=== PATIENT | male | born 1965 | race Caucasian/White ===

== ENCOUNTER → 2021-12-23 13:02 | Outpatient (BNVA) | payer OTHER, SELFPAY | PROVIDERS: Family Provider Nurse Practitioner Family; PCP Nurse Practitioner Family; Visit Provider Family Medicine | DX: Z20.822 Contact with and (suspected) exposure to COVID-19 (principal) | CPT/HCPCS: 87635 ==

== ENCOUNTER 2021-12-30 07:52 | Inpatient (IN) | payer OTHER, SELFPAY ==
[2021-12-30] VITALS (30 sets, daily range): BP systolic 81–120; BP diastolic 52–95; PULSE 77–172; RESP 0–30; TEMP 36–36.1; O2SAT 91–100; BMI 25.7
--- NOTE | 2021-12-30 07:56 | XR_ITS ---
WS: [id number] Portable AP semiupright chest, 12/30/2021 Clinical Data: COVID + Comparison: PA and lateral chest, 01/10/2019. Findings: No nodules, masses or effusions are seen. The heart is normal. The pulmonary vascularity is not increased. No pneumonia or pneumothorax is seen. The aortic arch and descending thoracic aorta s how mild tortuosity. Monitor leads are on the chest wall. XR/XR chest 1V portable [id number] Impression: Atherosclerosis.
--- NOTE | 2021-12-30 08:03 | ED_ITS ---
HPI - COVID General: Chief Complaint: Shortness of Breath/Dyspnea Stated Complaint: SOB Time Seen by Provider: 12/30/21 07:57 History of Present Illness: Patient presents via ambulance with shortness of breath and not feeling good. Patient states there is been feeling worsens on prednisone and his shortness of breath started last night. Fingerstick in ambulance was 500 for his glucose. Patient said his sugars normally run 200 range but since he started prednisone he felt worse. Does have a dry cough has had a loss of taste and smell, body aches and nausea. Patient said he is urinating more and is very thirsty. Patient was seen in [facility] [place] last night but refused transport to hospital. MD complaint: known COVID positive Prior covid testing: yes, results known Prior testing date: 12/23/21 COVID 19 common symptoms: positive chills, non-productive cough, dyspnea, fatigue, body aches, loss of sense of smell and/or taste and nausea; negative headache(s) or throat pain COVID 19 other sytmptoms: negative chest pain COVID Results: SARS-CoV-2 (PCR) Detected (NOT DETECT) A 12/23/21 13:02 12/23/21 Coronavirus Type 229E (PCR) Not detected (NOT DETECT) 12/23/21 13:02 12/23/21 Review of Systems Const: Reports: chills, body aches and fatigue Eyes: Denies: eye discomfort ENMT: Denies: throat pain Card: Denies: chest pain Resp: Reports: dyspnea and non-productive cough GI: Reports: nausea : Reports: urinary frequency Skin/Breast: Denies: rash Neuro: Denies: headache(s) Psych: Denies: depression or suicidal ideation PFS ED PFSH: Medical History (Updated 12/30/21 @ 10:32 by David Pena MD) Diabetes 1.5, managed as type 2 HTN (hypertension) Family History Brother Diabetes Grandfather Diabetes PATERNAL Myocardial infarction Grandmother Diabetes MATERNAL CAD (coronary artery disease) MATERNAL S/P CABG (coronary artery bypass graft) Social History (Updated 12/30/21 @ 10:26 by David Pena MD) Smoking and tobacco status: never smoked Alcohol intake: never Physical Exam Const: COMMON NORMALS: no acute distress, patient oriented x3 and alert HENMT: COMMON NORMALS: normocephalic and external ears normal HEAD & SCALP: normocephalic EXTERNAL EAR: Yes external ears normal Eye: COMMON NORMALS: EOMs intact bilaterally Neck/C-Spine: COMMON NORMALS: no JVD Resp: COMMON NORMALS: normal respiratory effort and No use of accessory muscles Cardio: COMMON NORMALS: no JVD RATE: tachycardic Extremity: COMMON NORMALS: normal to inspection and full ROM NARRATIVE EXTREMITY EXAM: Feet are cool to touch Neuro: COMMON NORMALS: patient oriented x3 SENSORIUM/ORIENTATION: Yes alert Psych: COMMON NORMALS: mental status grossly normal Skin: COMMON NORMALS: no rashes or lesions noted GENERAL SKIN EXAM: no rashes or lesions noted Course Vital Signs: Vital signs: Vital Signs Temperature 97.0 F L 12/30/21 07:55 Pulse Rate 131 H 12/30/21 12:00 Respiratory Rate 18 12/30/21 12:00 Blood Pressure 96/71 12/30/21 12:00 Pulse Oximetry 99 12/30/21 12:00 [facility] - COVID Medical Decision Making Report given to Dr. Jimenez Lab Data : 12/30/21 08:38 12/30/21 12:20 Radiology Impressions Chest X-Ray 12/30/21 07:56 Impression: Atherosclerosis. Chest CTA 12/30/21 08:14 IMPRESSION: 1. Bilateral pulmonary emboli. Bilateral segmental/subsegmental lower lobe pulmonary emboli. 2. No RIGHT heart strain. 3. No adenopathy or pneumonia. Notified Phuc Jimenez DO at 12/30/2021 8:50 AM. Laboratory Results WBC 15.8 10^3/uL (4.0-10.0) H 12/30/21 08:38 RBC 6.77 10^6/uL (4.1-5.3) H 12/30/21 08:38 Hgb 19.8 g/dL (11.7-16.6) H 12/30/21 08:38 Hct 60.7 % (42.0-52.0) H 12/30/21 08:38 MCV 89.7 fl (80-94) 12/30/21 08:38 MCH 29.2 pg (28.0-34.0) 12/30/21 08:38 MCHC 32.6 g/dL (30.0-36.0) 12/30/21 08:38 RDW 12.3 % (12.1-15.1) 12/30/21 08:38 Plt Count 420 10^3/cmm (130-400) H 12/30/21 08:38 MPV 10.3 fL (7.4-10.4) 12/30/21 08:38 Neut % (Auto) 88.7 % 12/30/21 08:38 Lymph % (Auto) 4.3 % 12/30/21 08:38 Mccreary % (Auto) 5.8 % 12/30/21 08:38 Eos % (Auto) 0.1 % 12/30/21 08:38 Baso % (Auto) 0.5 % 12/30/21 08:38 Neut # (Auto) 13.97 10^3/uL (1.8-7.7) H 12/30/21 08:38 Lymph # (Auto) 0.7 10^3/uL (0.8-4.8) L 12/30/21 08:38 Mccreary # (Auto) 0.9 10^3/uL (0.2-0.9) 12/30/21 08:38 Eos # (Auto) 0.0 10^3/uL (0.0-0.8) 12/30/21 08:38 Baso # (Auto) 0.1 10^3/uL (0.0-0.1) 12/30/21 08:38 Nucleated RBC % (auto) 0 % 12/30/21 08:38 Nucleated RBCs # 0.0 /100WBC 12/30/21 08:38 PT 14.90 SECONDS (12.1-14.9) 12/30/21 09:37 INR 1.13 (0.8-1.2) 12/30/21 09:37 APTT 23.0 SECONDS (23.9-36.7) L 12/30/21 09:37 Specimen Type Arterial 12/30/21 08:14 Sample Site Radial, left 12/30/21 08:14 ABG pH 7.04 (7.35-7.45) L* 12/30/21 08:14 ABG pCO2 7.7 mmHg (35-45) L* 03/10/22 08:14 ABG pO2 176.0 mmHg (80.0-100.0) H 12/30/21 08:14 ABG HCO3 2.1 mmol/L (22-26) L 12/30/21 08:14 ABG O2 Saturation 99.2 12/30/21 08:14 ABG Base Excess -26.0 mmol/L (-2.0-2.0) L 12/30/21 08:14 Erick Test Pos 12/30/21 08:14 A-a O2 Gradient 8.6 mmHg (5-10) 12/30/21 08:14 Hematocrit 58.6 % (42-52) H 12/30/21 08:14 Hgb O2 Saturation 97.5 % (95-100) 12/30/21 08:14 Carboxyhemoglobin 0.8 %THgb (0.4-20.1) 12/30/21 08:14 Methemoglobin 0.9 % (0.4-1.5) 12/30/21 08:14 Total Hemoglobin 19.1 g/dL (14-18) H 12/30/21 08:14 Sodium 128.0 mmol/L (131-143) L 12/30/21 08:14 Potassium 5.9 mmol/L (3.5-5.0) H 12/30/21 08:14 Glucose 603.0 mg/dL (70-115) H 12/30/21 08:14 Ionized Calcium 1.3 mmol/L (1.1-1.4) 12/30/21 08:14 O2 Delivery Device Nc 12/30/21 08:14 O2 Liters/Min 4.0 % 12/30/21 08:14 FiO2 36.0 % 12/30/21 08:14 Lead Business Analyst ID Ed 12/30/21 08:14 Sodium 126 mmol/L (136-145) L 12/30/21 08:38 Potassium 6.1 mmol/L (3.5-5.1) H 12/30/21 08:38 Chloride 84 mmol/L (98-107) L 12/30/21 08:38 Carbon Dioxide 4 mmol/L (22-29) L* 12/30/21 08:38 Anion Gap 44.1 (5-19) H 12/30/21 08:38 BUN 65 mg/dL (6-20) H 12/30/21 08:38 Creatinine 1.6 mg/dL (0.7-1.2) H 12/30/21 08:38 GFR Calculation 45.3 mL/min (90-130) L 12/30/21 08:38 Glucose 600 mg/dL (65-115) H* 12/30/21 08:38 Calculated Osmolality 309 mOsm/kg (285-295) H 12/30/21 08:38 Calcium 9.8 mg/dL (8.5-10.5) 12/30/21 08:38 Phosphorus 6.6 mg/dL (2.5-4.5) H 12/30/21 08:38 Magnesium 3.0 mg/dL (1.7-2.3) H 12/30/21 08:38 Total Bilirubin 0.3 mg/dL (0.15-1.2) 12/30/21 08:38 AST 10 U/L (0-40) 12/30/21 08:38 ALT 16 U/L (0-41) 12/30/21 08:38 Alkaline Phosphatase 84 IU/L (40-130) 12/30/21 08:38 Creatine Kinase 88 U/L (39-308) 12/30/21 08:38 Troponin T Baseline 22 ng/L (0-15) H 12/30/21 08:38 Total Protein 8.5 g/dL (6.6-8.7) 12/30/21 08:38 Albumin 4.9 g/dL (3.5-5.2) 12/30/21 08:38 Globulin 3.6 g/dL (1.3-4.6) 12/30/21 08:38 Procalcitonin 0.11 ng/mL (0-0.5) 12/30/21 08:38 TSH 0.29 uIU/mL (0.27-4.20) 12/30/21 08:38 Serum Ketones Positive (Negative) H 12/30/21 08:38 SARS-CoV-2 (PCR) Detected (NOT DETECT) A 12/23/21 13:02 12/23/21 Coronavirus Type 229E (PCR) Not detected (NOT DETECT) 12/23/21 13:02 12/23/21 Discharge Plan Discharge Admit Provider: David Pena Condition: Stable Coding Level of Care Code ED Aluminum Molder for Chg Fwd Exam Comprehensive
--- NOTE | 2021-12-30 08:12 | ECG_ITS ---
[facility] Test Date: 2021-12-30 Pat Name: Aiden Jj Department: Room: ICU04 Gender: Male Marketing Underwriter: : 1965 Requested By: Phuc Hernandez Order Number: [id number] Mandeep MD: Sandi Davalos M.D. Measurements Intervals [place] Rate: 156 P: [place]: QRS: 66 QRSD: 95 T: -83 QT: 262 QTc: 422 Interpretive Statements ATRIAL FIBRILLATION WITH RAPID VENTRICULAR RESPONSE ST DEVIATION AND MODERATE T-WAVE ABNORMALITY, CONSIDER INFERIOR ISCHEMIA [-0.1+ mV T-WAVE IN II/aVF] CRITICAL TEST RESULT No previous ECG available for comparison Electronically Signed On 12-31-2021 6:00:26 DIRECTOR ACCOUNT MANAGEMENT by Sandi Davalos M.D. [id number]
--- NOTE | 2021-12-30 08:14 | CT_ITS ---
WS: [id number] CT CHEST ANGIOGRAPHY WITH REFORMATS HISTORY: dyspnea, covid tachycardia TECHNIQUE: Contiguous axial images are obtained through the chest during arterial injection of intrav enous contrast. Images are reconstructed to evaluate the pulmonary arteries. MIP imaging also reviewe d. All CT scans at [facility] use at least one of these dose optimization techniques: automat ed exposure control; mA and/or kV adjustment per patient size (includes targeted exams where dose is matched to clinical indication); or iterative reconstruction. CONTRAST: Omnipaque 350; 95 mL IV. DLP: 587.86 mGy.cm COMPARISON: 12/11/2013 Adequate opacification of the pulmonary arteries. There are small subsegmental filling defects within the lower lobe pulmonary arteries consistent with pulmonary emboli. Pulmonary artery size is equal t o the aorta. Normal size aorta. Heart is normal size with no RIGHT heart strain. Mild motion artifact obscuring fine detail of the lungs. No pneumonia, mass or nodule identified. No mediastinal or hilar adenopathy. Small hiatal hernia. No adrenal mass visualized. The entire adrenal glands are not included. The visualized upper abdomina l structures are negative. No osteoblastic or osteolytic bone disease. CT/CT angio chest PE protcl [id number] IMPRESSION: 1. Bilateral pulmonary emboli. Bilateral segmental/subsegmental lower lobe pul monary emboli. 2. No RIGHT heart strain. 3. No adenopathy or pneumonia. Notified Phuc Jimenez DO at 12/30/2021 8:50 AM.
[2021-12-30 08:27] LABS: Arterial Blood Gas Hematocrit 58.6 % (42-52); Blood Gas Allen Test Pos; Blood Gas Sample Type Arterial; Carboxyhemoglobin 0.8 %THgb (0.4-20.1); HCO3 ABG 2.1 mmol/L (22-26); HGB O2 Sat 97.5 % (95-100); Ionized Calcium Level - ABG 1.3 mmol/L (1.1-1.4); Methemoglobin 0.9 % (0.4-1.5); Oxygen Saturation ABG 99.2; Potassium Level - ABG 5.9 mmol/L (3.5-5.0); Total Hemoglobin 19.1 g/dL (14-18)
[2021-12-30 08:28] LABS: Alveolar-Arterial Oxygen Gradi 8.6 mmHg (5-10); Blood Gas Operator Identificat ED; Blood Gas Sample Site Radial, left; Oxygen Device NC
[2021-12-30 08:29] LABS: ABG PCO2 7.7 mmHg (35-45); ABG PH Result 7.04 (7.35-7.45)
[2021-12-30] MEDS: iohexol 350 mg/mL 100 mL Btl IV (08:41)
[2021-12-30] MEDS: insulin regular-human 100 units/1 mL 10 UNIT IVP (08:49)
[2021-12-30 08:56] LABS: Basophils # 0.1 10^3/uL (0.0-0.1); Basophils % 0.5 %; Eosinophils % 0.1 %; Hematocrit 60.7 % (42.0-52.0); Hemoglobin 19.8 g/dL (11.7-16.6); Lymphocytes # 0.7 10^3/uL (0.8-4.8); Lymphocytes % 4.3 %; Mean Corpuscular HGB Conc 32.6 g/dL (30.0-36.0); Mean Corpuscular Hemoglobin 29.2 pg (28.0-34.0); Mean Corpuscular Volume 89.7 fl (80-94); Mean Platelet Volume 10.3 fL (7.4-10.4); Monocytes # 0.9 10^3/uL (0.2-0.9); Monocytes % 5.8 %; Neutrophils # 13.97 10^3/uL (1.8-7.7); Neutrophils % 88.7 %; Nucleated Red Blood Cells % 0 %; Platelet Count 420 10^3/cmm (130-400); Red Blood Count 6.77 10^6/uL (4.1-5.3); Red Cell Distribution Width 12.3 % (12.1-15.1); White Blood Count 15.8 10^3/uL (4.0-10.0)
[2021-12-30] MEDS: lactated ringers 1,000 ML 999 ML IV (09:02)
[2021-12-30 09:25] LABS: Alanine Aminotransferase 16 U/L (0-41); Albumin Level 4.9 g/dL (3.5-5.2); Alkaline Phosphatase 84 IU/L (40-130); Aspartate Amino Transferase 10 U/L (0-40); Blood Urea Nitrogen 65 mg/dL (6-20); Calcium 9.8 mg/dL (8.5-10.5); Chloride 84 mmol/L (98-107); Globulin 3.6 g/dL (1.3-4.6); Glomerular Filtration Rate 45.3 mL/min (90-130); Osmolality Calculated 309 mOsm/kg (285-295); Phosphorus 6.6 mg/dL (2.5-4.5); Sodium 126 mmol/L (136-145); Total Bilirubin 0.3 mg/dL (0.15-1.2); Total Protein 8.5 g/dL (6.6-8.7)
[2021-12-30 09:26] LABS: Troponin(5th) Baseline 22 ng/L (0-15)
[2021-12-30 09:29] LABS: Ketone (Acetest) Serum Positive (Negative)
[2021-12-30 09:31] LABS: Procalcitonin 0.11 ng/mL (0-0.5)
[2021-12-30] MEDS: heparin 5,000 unit/mL INJ 1 mL IV (09:37)
[2021-12-30 09:42] LABS: Anion Gap 44.1 (5-19); Carbon Dioxide 4 mmol/L (22-29); Glucose 600 mg/dL (65-115); Potassium 6.1 mmol/L (3.5-5.1)
[2021-12-30] MEDS: heparin drip 25,000 UNIT/500 ML PREMIX 24 UNIT IV (09:50)
[2021-12-30] MEDS: calcium chloride 10% Syr 10 mL 1 GM IVP (09:51)
[2021-12-30 10:13] LABS: INR 1.13 (0.8-1.2)
[2021-12-30] MEDS: insulin regular-human 250 UNIT in sodium chloride 0.9% 250 ML 15.4 UNIT IV (10:16)
--- NOTE | 2021-12-30 10:20 | PM.HP ---
Providers/Chief Complaint Admitting Physician: David Pena MD Primary Care Provider: Gladis Landis APN Chief Complaint: SOB History of Present Illness Aiden Jj is a 56 year old male who presents to the hospital with history of shortness of breath, confusion. He was recently diagnosed with Covid, on December 23. He had been ill 2 days prior to that with cough fatigue body aches and nasal congestion. From what I understand he was placed on steroids, antibiotic, and Paxlovid. He states his shortness of breath worsened in the last several days and he came to the emergency department. He has not had fever at home in the last several days. He has not had any vomiting or diarrhea but has had significant anorexia. He has never had DKA before. Review of Systems General: Reports: ROS unobtainable due to mental status (Limited secondary to mental status, only a few review of systems could be d) Const: Denies: fever(s) or chills ENMT: Denies: throat pain Card: Denies: chest pain Resp: Reports: dyspnea GI: Denies: nausea or vomiting Neuro: Reports: confusion Medications/Allergies Home Medications Medication Instructions Recorded Confirmed Last Taken Type aspirin 325 mg tablet 325 mg PO DAILY 11/18/19 12/30/21 Unknown History lorazepam 0.5 mg tablet (Ativan) 0.25 - 0.5 mg PO BID PRN 11/18/19 12/30/21 Unknown History multivitamin 1 tab PO QAM 11/18/19 12/30/21 Unknown History olmesartan 20 mg tablet (Benicar) 20 mg PO BID 11/18/19 12/30/21 12/27/21 History Paxlovid See Rx Instructions .ROUTE .COMPLEX 12/30/21 12/30/21 12/29/21 History amoxicillin 875 mg-potassium 1 tab PO BID 12/30/21 12/30/21 12/29/21 History clavulanate 125 mg tablet cetirizine 10 mg tablet 10 mg PO DAILY 12/30/21 12/30/21 Unknown History glipizide 5 mg tablet 10 mg PO BID 12/30/21 12/30/21 Unknown History metformin 500 mg tablet 1,000 mg PO BID 12/30/21 12/30/21 12/28/21 History semaglutide 1 mg/dose (4 mg/3 mL) 1 mg SUBCUT Q7D 12/30/21 12/30/21 12/28/21 History subcutaneous pen injector (Ozempic) Allergies Allergy/AdvReac Type Severity Reaction Status Date / Time No Known Allergies Allergy Verified 12/30/21 09:07 PFSH Acute PFSH: Medical History (Updated 12/30/21 @ 10:32 by David Pena MD) Diabetes 1.5, managed as type 2 HTN (hypertension) Family History Brother Diabetes Grandfather Diabetes PATERNAL Myocardial infarction Grandmother Diabetes MATERNAL CAD (coronary artery disease) MATERNAL S/P CABG (coronary artery bypass graft) Social History (Updated 12/30/21 @ 10:26 by David Pena MD) Smoking and tobacco status: never smoked Alcohol intake: never Vitals/I&O/Wt Last Vital Signs Temp 97.0 F L 12/30/21 07:55 Pulse 160 H 12/30/21 09:04 Resp 18 12/30/21 07:55 BP 120/91 12/30/21 09:04 Pulse Ox 91 12/30/21 07:55 Weight last 48 hrs Weight 86.183 kg Physical Exam Narrative: General exam is a white male, who appears somewhat confused, will answer a few questions but takes a while doing so. HEENT: Pupils equally round. Oropharynx with dry mucous membranes Neck is supple no lymphadenopathy thyromegaly Cardiovascular tachycardic, irregular without murmur Lungs clear bilaterally. No wheezes or crackles Abdomen is soft, positive bowel sounds. No obvious organomegaly demonstrates Wheeler Extremities no cyanosis clubbing or edema, cap refill brisk Skin no rash Neuro no focal deficits, however slow to respond and somewhat confused. Data : 12/30/21 08:38 12/30/21 08:38 Other Labs: INR 1.13 Initial ABG demonstrates pH 7.04, PCO2 7.7, PO2 176 on 4 L Calcium 9.8, magnesium 3.0, LFTs normal Troponin XX 2 Procalcitonin 0.11 Serum ketones positive Covid PCR positive on December 23 CTA demonstrated bilateral pulmonary emboli, no right heart strain, no obvious pneumonia Blood cultures were obtained I am awaiting review of his EKG. From telemetry it appears he has atrial fibrillation with rapid ventricular rate. Unfortunately his full EKG is not in the system currently. Micro: Microbiology 12/30/21 09:37 Blood Culture - Preliminary Blood SPECIMEN COLLECTED A&P Assessment and plan (1) DKA (diabetic ketoacidosis): Patient presenting with DKA with significant metabolic acidosis and incomplete compensatory respiratory alkalosis Hydration initiated in the emergency department, with orders to go to an insulin drip. Close follow-up of electrolytes When blood sugar reaches less than 250 initiate D5 normal saline, likely with 20 mEq of potassium chloride per liter if potassium at that time is acceptable. N.p.o. for now Intermittently will check magnesium and phosphorus as well. Status: Acute (2) Hyperkalemia: Significant hyperkalemia on presentation, related to his acidosis. This should improve substantially with IV fluids, as well as correction of acidosis. I do not think he would be able to tolerate Kayexalate at this time. He will be getting significant amounts of insulin on an insulin drip which should help as well. He was given calcium chloride in the emergency department for myocardial stabilization. Status: Acute (3) Pulmonary embolism: Patient diagnosed with pulmonary embolism by CTA Was placed on a heparin drip in the emergency department We will continue heparin drip for now, with plans to convert to Lovenox as patient stabilizes. Check echocardiogram Status: Acute (4) Atrial fibrillation with RVR: Patient with atrial fibrillation with rapid ventricular rate, likely secondary to pulmonary embolism, electrolyte abnormalities, Covid. Echocardiogram will be checked as above Check TSH He was started on a Cardizem drip. If blood pressures remain acceptable this will be continued and heart rate should improve with treatment of his acidosis and DKA. Should blood pressure become a problem, amiodarone may need to be initiated. He would be a poor candidate currently for digoxin secondary to his renal function. Status: Acute (5) Acute kidney injury: Appears to be secondary to the above illnesses associated with dehydration. Hold all renal toxic medication, including holding his ARB currently. Wheeler has been placed for accurate monitoring At this point a renal ultrasound is not needed Close follow-up of renal dysfunction Secondary to Covid, dehydration, will check CK. Status: Acute (6) Dehydration: Fluids initiated in the emergency department, will continue Status: Acute (7) COVID-19: Hold any further steroids secondary to DKA Hold Paxlovid currently Note that he is immunized with Moderna Rocephin, azithromycin empirically currently. Status: Acute (8) HTN (hypertension): Hold antihypertensives currently. Blood pressure may become a problem. Status: Acute Attestations Medical Necessity Statement*: Full code Lovenox will suffice for DVT prophylaxis Protonix for GI prophylaxis Critical Care Time: The high probability of a clinically significant, sudden or life threatening deterioration of the patient's [pulmonary, renal, cardiac, infectious disease system(s) required my full and direct attention, intervention and personal management. The critical care time is as shown. This time is in addition to time spent performing any reported procedures but includes the following: [x] Data and vital sign review and interpretation [x] Patient assessment, examination and intervention [x] Documentation [x] Medication orders and management Critical Care Time (min): 65 Coding Level of Care Code Acute Telecommunications Cable Jointer for Chg Fwd Diagnoses DKA (diabetic ketoacidosis) E11.10 Hyperkalemia E87.5 Pulmonary embolism I26.99 Atrial fibrillation with RVR I48.91 Acute kidney injury N17.9 Dehydration E86.0 COVID-19 U07.1 HTN (hypertension) I10
[2021-12-30 11:09] LABS: Creatine Phosphokinase 88 U/L (39-308); Thyroid Stimulating Hormone 0.29 uIU/mL (0.27-4.20)
[2021-12-30 11:20] LABS: Bilirubin Urine Neg (Negative); Blood Urine 2+ (Negative); Glucose Urine UA 4+ (Normal); Ketones Urine 3+ (Negative); Nitrate Urine Negative (Negative); Protein Urine Trace (Negative); Urine Appearance Clear (CLEAR); Urine Color Straw (Yellow); pH Urine 5 (5-7)
[2021-12-30 11:21] LABS: Add Urine Culture? No; Add Urine Microscopic? YES; Fine Granular Casts Urine RARE /lpf; Leukocyte Esterase Urine Negative (Negative); RBC Urine RARE /hpf (0-2); Urobilinogen Urine Neg (Negative); WBC Urine RARE /hpf (0-5)
[2021-12-30 11:24] LABS: Troponin 5 2HR 22.57 ng/L (0-15)
[2021-12-30 11:27] LABS: Troponin 5 2HR Delta 0.57 ABS# (0-10)
[2021-12-30 11:41] LABS: Glucose Point of Care 515 mg/dL (70-110)
--- NOTE | 2021-12-30 11:44 | USCV_ITS ---
Transthoracic Echo Aiden Jj Age: 56 Gender: M : 1965 Exam Date: 12/30/2021 23:30 Ordering Phys: David Pena MD Technologist: Paulo Rowe [place]am [place] [facility] [place] Indication: A Fib BP: 92 / 58 HR: 86 Rhythm: Sinus Technical Quality: Suboptimal MEASUREMENTS (Male / Female) Normal Values 2D ECHO LV Diastolic Diameter PLAX 3.5 cm 4.2 - 5.9 / 3.9 - 5.3 cm LV Systolic Diameter PLAX 1.3 cm IVS Diastolic Thickness 2.2 cm 0.6 - 1.0 / 0.6 - 0.9 cm IVS Systolic Thickness 1.6 cm LVPW Diastolic Thickness 2.0 cm 0.6 - 1.0 / 0.6 - 0.9 cm LVPW Systolic Thickness 1.4 cm LVOT Diameter 2.4 cm LV Ejection Fraction 2D Teich 91.9 % LV Ejection Fraction MOD 2C 30.3 % LV Ejection Fraction 2C AL 34.8 % LA Diameter 2.8 cm LA Width 3.1 cm LA Height 5.8 cm RA Width 2.7 cm RA Height 4.8 cm Aorta at Sinotubular Diameter 2.6 cm M-MODE Aortic Annulus Diameter 2.7 cm LA Ao Ratio MM 1.2 MV E Point Septal Separation 1.6 cm DOPPLER AV Peak Velocity 150.0 cm/s LVOT Peak Velocity 126.0 cm/s AV Area Cont Eq vti 3.6 cm squared AV Area Cont Eq pk 3.7 cm squared MV Peak Velocity 90.0 cm/s MV Area PHT 1.8 cm squared Mitral E to A Ratio 0.7 MV E' Velocity 35.5 cm/s Mitral E to MV E' Ratio 4.8 Mitral E to LV E' Lateral Ratio 4.1 Mitral E to LV E' Septal Ratio 5.9 TR Peak Velocity 90.7 cm/s TR Peak Gradient 3.3 mmHg TR Mean Velocity 57.2 cm/s TR Mean Gradient 1.6 mmHg TR Velocity Time Integral 10.3 cm Right Atrial Pressure 8.0 mmHg Pulmonary Artery Systolic Pressu 11.3 mmHg PV Peak Velocity 101.0 cm/s RV Acceleration Time 0.0 s RV Ejection Time 0.2 s RV AcT/ET 0.2 FINDINGS Left Ventricle Normal left ventricular size. Grossly normal LV systolic function. Regional wall motion normalities cannot be assessed because of poor visualization .Grade 1 diastolic dysfunction Right Ventricle Grossly normal Right Atrium Not well-visualized Left Atrium The left atrium is normal in size. Mitral Valve Grossly normal Aortic Valve Grossly normal. No significant stenosis or regurgitation seen. Tricuspid Valve Not well-visualized Pulmonic Valve Not visualized Pericardium Grossly normal Aorta Normal ascending aorta dimension. CONCLUSIONS This is technically very difficult study because of poor ultrasonic windows. Grossly LV systolic function is normal. Grade 1 diastolic dysfunction. Valvular structures are not well-visualized however no gross abnormalities. No comparison studies are available. Andrew Morales MD (Electronically Signed) Final Date: 31 December 2021 12:02 S
[2021-12-30 12:09] LABS: Glucose Point of Care 450 mg/dL (70-110)
[2021-12-30] MEDS: ondansetron 2 mg/ML SDV 2 mL 4 MG IVP (12:41)
[2021-12-30] MEDS: cefTRIAXone 1,000 MG in sodium chloride 0.9% (plus) 50 ML 100 MG IV (12:43)
[2021-12-30] MEDS: sodium chloride 0.9% 1,000 ML 150 ML IV (12:44)
[2021-12-30 12:46] LABS: Anion Gap 37.7 (5-19); Blood Urea Nitrogen 68 mg/dL (6-20); Calcium 10.3 mg/dL (8.5-10.5); Chloride 92 mmol/L (98-107); Glomerular Filtration Rate 52.8 mL/min (90-130); Glucose 447 mg/dL (65-115); Osmolality Calculated 309 mOsm/kg (285-295); Potassium 4.7 mmol/L (3.5-5.1); Sodium 130 mmol/L (136-145)
[2021-12-30 12:51] LABS: Carbon Dioxide 5 mmol/L (22-29)
--- NOTE | 2021-12-30 13:13 | PC.NURSE ---
Report given to TAMEKA Cho.
[2021-12-30] MEDS: azithromycin 500 MG in sodium chloride 0.9% 250 ML 250 MG IV (13:40)
[2021-12-30 14:09] LABS: Glucose Point of Care 410 mg/dL (70-110)
--- NOTE | 2021-12-30 14:12 | ECG_ITS ---
[facility] Test Date: 2021-12-30 Pat Name: Aiden Jj Department: Room: ICU09 Gender: Male Press Bucker: : 1965 Requested By: Phuc Hernandez Order Number: [id number] Mandeep MD: Sandi Davalos M.D. Measurements Intervals [place] Rate: 127 P: [place]: QRS: 62 QRSD: 101 T: -71 QT: 289 QTc: 420 Interpretive Statements ATRIAL FIBRILLATION WITH RAPID VENTRICULAR RESPONSE MODERATE T-WAVE ABNORMALITY, CONSIDER INFERIOR ISCHEMIA [-0.1+ mV T-WAVE IN II/aVF] Compared to ECG 12/30/2021 08:23:03 No significant changes Electronically Signed On 12-31-2021 6:06:17 MACHINE TOOL OPERATOR by Sandi Davalos M.D. [id number]
[2021-12-30 14:55] LABS: Troponin 5 6HR 55.65 ng/L (0-15)
[2021-12-30 14:57] LABS: Partial Thromboplastin Time 108.1 SECONDS (23.9-36.7)
[2021-12-30 14:58] LABS: Troponin 5 6HR Delta 33.65 ng/L (0-12)
[2021-12-30 16:09] LABS: Glucose Point of Care 375 mg/dL (70-110)
[2021-12-30 16:09] LABS: Glucose Point of Care 301 mg/dL (70-110)
[2021-12-30 16:44] LABS: Glucose Point of Care 283 mg/dL (70-110)
--- NOTE | 2021-12-30 17:26 | PC.NURSE ---
Dr. Pena called, gave t.o. to hold heparin drip and start Lovenox 1mg/kg q12 hrs due to bleeding noted around catheter
[2021-12-30 17:53] LABS: Glucose Point of Care 231 mg/dL (70-110)
[2021-12-30 17:53] LABS: Glucose Point of Care 320 mg/dL (70-110)
[2021-12-30] MEDS: D5-NS 0.45% + KCL 20 mEq 20 MEQ/1,000 ML BAG 125 MEQ IV (17:54)
[2021-12-30] MEDS: enoxaparin 100 mg/mL Syringe 90 MG SUBCUT (18:18)
[2021-12-30 19:30] LABS: Glucose Point of Care > 600 mg/dL (70-110)
[2021-12-30 21:19] LABS: Glucose Point of Care 127 mg/dL (70-110)
[2021-12-30 21:31] LABS: Glucose Point of Care 125 mg/dL (70-110)
[2021-12-30 21:58] LABS: Blood Urea Nitrogen 66 mg/dL (6-20); Calcium 9.3 mg/dL (8.5-10.5); Carbon Dioxide 16 mmol/L (22-29); Chloride 104 mmol/L (98-107); Glomerular Filtration Rate 57.5 mL/min (90-130); Glucose 101 mg/dL (65-115); Magnesium 2.4 mg/dL (1.7-2.3); Osmolality Calculated 299 mOsm/kg (285-295); Phosphorus 2.3 mg/dL (2.5-4.5); Sodium 135 mmol/L (136-145)
[2021-12-31] VITALS (38 sets, daily range): BP systolic 92–116; BP diastolic 57–77; PULSE 78–102; RESP 3–23; TEMP 36.4–37.1; O2SAT 91–100; BMI 25.8
[2021-12-31 03:42] LABS: Glucose Point of Care 159 mg/dL (70-110)
[2021-12-31 03:44] LABS: Basophils % 0.1 %; Hematocrit 46.1 % (42.0-52.0); Lymphocytes # 0.9 10^3/uL (0.8-4.8); Mean Corpuscular HGB Conc 34.7 g/dL (30.0-36.0); Mean Corpuscular Hemoglobin 29.2 pg (28.0-34.0); Mean Corpuscular Volume 84.1 fl (80-94); Mean Platelet Volume 9.8 fL (7.4-10.4); Monocytes # 1.1 10^3/uL (0.2-0.9); Monocytes % 6.3 %; Neutrophils # 15.11 10^3/uL (1.8-7.7); Neutrophils % 88.2 %; Nucleated Red Blood Cells % 0 %; Platelet Count 218 10^3/cmm (130-400); Red Blood Count 5.48 10^6/uL (4.1-5.3); Red Cell Distribution Width 12.2 % (12.1-15.1); White Blood Count 17.1 10^3/uL (4.0-10.0)
[2021-12-31 04:00] LABS: Alanine Aminotransferase 11 U/L (0-41); Albumin Level 3.5 g/dL (3.5-5.2); Alkaline Phosphatase 51 IU/L (40-130); Anion Gap 16.4 (5-19); Aspartate Amino Transferase 12 U/L (0-40); Blood Urea Nitrogen 56 mg/dL (6-20); Calcium 8.3 mg/dL (8.5-10.5); Carbon Dioxide 18 mmol/L (22-29); Chloride 104 mmol/L (98-107); Globulin 1.9 g/dL (1.3-4.6); Glomerular Filtration Rate 69.8 mL/min (90-130); Glucose 178 mg/dL (65-115); Osmolality Calculated 298 mOsm/kg (285-295); Potassium 4.4 mmol/L (3.5-5.1); Sodium 134 mmol/L (136-145); Total Bilirubin 0.4 mg/dL (0.15-1.2); Total Protein 5.4 g/dL (6.6-8.7)
[2021-12-31] MEDS: D5-NS 0.45% + KCL 20 mEq 20 MEQ/1,000 ML BAG 125 MEQ IV (04:52)
[2021-12-31 06:06] LABS: Glucose Point of Care 140 mg/dL (70-110)
[2021-12-31 06:06] LABS: Glucose Point of Care 136 mg/dL (70-110)
--- NOTE | 2021-12-31 06:30 | PC.NURSE ---
Family Updated on Patient Condition Spoke with patient mother Miley and updated her about patient condition throughout night. All questions answered.
[2021-12-31 06:59] LABS: Glucose Point of Care 135 mg/dL (70-110)
[2021-12-31] MEDS: enoxaparin 100 mg/mL Syringe 90 MG SUBCUT ×2 (07:26→18:31)
[2021-12-31] MEDS: sodium chloride 0.9% 1,000 ML 75 ML IV ×2 (07:41→20:21)
--- NOTE | 2021-12-31 07:43 | PM.PN ---
Documented by User: KYLIE Salinas STDMINERVA 12/31/21 08:43 Subjective Subjective: Patient is lying comfortably in bed, continues to be on 6L supplemental oxygen. Patient is more alert and talkative today, there is still some pause between question being asked and answered, but improving. He complains of difficulty with sleep over the last 3 days, patient also complains of constipation. He explains that he his hungry and believes he is able to eat without difficulty. Denies any nausea, vomiting, or fevers. Vitals/I&O/Wt Last Vital Signs Temp 98.6 F 12/31/21 04:00 Pulse 90 12/31/21 06:00 Resp 3 L 12/31/21 06:00 BP 96/64 12/31/21 06:00 Pulse Ox 99 12/31/21 06:00 12/30/21 12/31/21 12/31/21 22:59 06:59 14:59 Intake Total 1434.375 / 2803.365 1236.3 / 4039.665 475.997 / 475.997 Output Total 900 / 900 840 / 1740 Balance 534.375 / 1903.365 396.3 / 2299.665 475.997 / 475.997 Weight last 48 hrs Weight 86.455 kg Weight 86.183 kg Physical Exam Narrative: General: Ill appearing male lying in bed with supplemental oxygen. HEENT: Normocephalic, atraumatic. Pupils equal and round. Cardiac: Regular rate and rhythm. S1 S2 present, no additional heart sounds appreciated. No murmurs rubs or gallops. Peripheral pulse 2+. Respiratory: Lungs clear to auscultation. No wheezes rales or rhonchi. Air entry equal bilaterally. GI: Soft, minimally tender to palpation, nondistended, normoactive bowel sounds, no organomegaly. Extremities: No obvious abnormalities. No cyanosis, clubbing, or edema. Skin: Pale, dry, cool. Neuro: Slow to answer questions, but improving. No focal neurological deficits. Urinary Catheter Management: Sweet: Cath Placed During This Visit: yes Reason for Continuing Indwelling Catheter: Accurate Measurement of Urinary Output in Critically Ill Patients Urinary Catheter Date of Insertion: 12/30/21 Urinary Catheter Time of Insertion: 10:28 Data : 12/31/21 03:33 12/31/21 03:33 Other Labs: Calcium 8.3 Micro: Microbiology 12/30/21 10:45 Blood Culture - Preliminary Blood SPECIMEN COLLECTED 12/30/21 09:37 Blood Culture - Preliminary Blood SPECIMEN COLLECTED A&P Assessment and plan (1) DKA (diabetic ketoacidosis): Patient presented with DKA with significant metabolic acidosis and incomplete compensatory respiratory alkalosis, patient's acidosis has resolved with anion gap of 16. Hydration initiated in the emergency department, with orders to go to an insulin drip, patient's most recent blood glucose reading was 136, potassium has normalized at 4.4. Will stop insulin drip and start 10 units Lantus after blood glucose begins to rise. Continue close follow-up of electrolytes As blood sugars are declined to acceptable levels, D5 1/2NS with 20 mEq KCl stopped. Start NS IV fluids at 75 mls per hour Start carbohydrate consistent diet Repeat BMP in AM Status: Acute (2) Hyperkalemia: Patient present with significant hyperkalemia on presentation, related to his acidosis, this is now normalized at 4.4 following therapy with IV fluids and insulin drip. Status: Acute (3) Pulmonary embolism: Patient diagnosed with pulmonary embolism by CTA Was placed on a heparin drip in the emergency department, patient was then converted to Lovenox as he stablized. Echocardiogram report still pending. Status: Acute (4) Atrial fibrillation with RVR: Patient with atrial fibrillation with rapid ventricular rate, likely secondary to pulmonary embolism, electrolyte abnormalities, and Covid. Echocardiogram is ordered. TSH within normal limits He was started on a Cardizem drip, will discontinue as patient has converted to normal sinus rhythm. Start beta jamin if heart rate and blood pressure are appropriate Status: Acute (5) Acute kidney injury: Patient presented with KASSY secondary to above illness and associated dehydration. This has now resolved with Cr this AM at 1.1. Continue to hold ARB currently. Sweet still in place for accurate monitoring, will discontinue when patient is able to sit up and urinate without sweet in place. Continue close follow-up of renal dysfunction Secondary to Covid, dehydration, will check CK. Status: Acute (6) Dehydration: As hyperglycemia and hyperkalemia has improved, stop D5 1/2NS 20 mEq KCl Start NS IV fluids @ 75 mls/hr as diet is being progressed Status: Acute (7) COVID-19: Continue to hold any further steroids secondary to DKA Continue to hold Paxlovid Note that he is immunized with Moderna Continue Rocephin, azithromycin empirically. Continue supplemental oxygen via nasal cannula, wean as tolerated, was decreased from 6 to 4 Ls this AM with >96% saturation. Status: Acute (8) HTN (hypertension): Continue to hold antihypertensives currently, will continue to monitor and add back as appropriate. Patient's average MAP this AM was 79. Status: Acute Plan Start Senna-S for constipation Give Ativan 0.5 mg once for restlessness Full code Protonix for GI prophylaxis Lovenox for bilateral pulmonary emboli adequate for DVT prophylaxis Coding Level of Care Code Acute Panel Monitor for [facility] Fwd Diagnoses DKA (diabetic ketoacidosis) E11.10 Hyperkalemia E87.5 Pulmonary embolism I26.99 Atrial fibrillation with RVR I48.91 Acute kidney injury N17.9 Dehydration E86.0 COVID-19 U07.1 HTN (hypertension) I10 Documented by User: David Pena MD 12/31/21 08:55 Subjective Subjective: Patient is lying comfortably in bed, continues to be on 6L supplemental oxygen. Patient is more alert and talkative today, there is still some pause between question being asked and answered, but improving. He complains of difficulty with sleep over the last 3 days, patient also complains of constipation. He explains that he his hungry and believes he is able to eat without difficulty. Denies any nausea, vomiting, or fevers. Agree with above. I interviewed the patient as well. Medications: Reviewed: Yes Physical Exam Narrative: General: Ill appearing male lying in bed with supplemental oxygen. I lowered his oxygen to 4 L which he tolerated well with an adequate saturation. HEENT: Normocephalic, atraumatic. Pupils equal and round. Cardiac: Regular rate and rhythm. S1 S2 present, no additional heart sounds appreciated. No murmurs rubs or gallops. Peripheral pulse 2+. Respiratory: Lungs clear to auscultation. No wheezes rales or rhonchi. Air entry equal bilaterally. GI: Soft, minimally tender to palpation, nondistended, normoactive bowel sounds, no organomegaly. Extremities: No obvious abnormalities. No cyanosis, clubbing, or edema. Skin: Pale, dry, cool. Neuro: Slow to answer questions, but improving. No focal neurological deficits. Urinary Catheter Management: Sweet: Cath Placed During This Visit: yes Data : 12/31/21 03:33 12/31/21 03:33 A&P Assessment and plan (1) DKA (diabetic ketoacidosis): Patient presented with DKA with significant metabolic acidosis and incomplete compensatory respiratory alkalosis, patient's acidosis has resolved with anion gap of 16. Hydration initiated in the emergency department, with orders to go to an insulin drip, patient's most recent blood glucose reading was 136, potassium has normalized at 4.4. Will stop insulin drip and start 10 units Lantus after blood glucose begins to rise. Sliding scale insulin ordered as well Continue close follow-up of electrolytes As blood sugars are declined to acceptable levels, D5 1/2NS with 20 mEq KCl stopped. Start NS IV fluids at 75 mls per hour Start carbohydrate consistent diet Repeat BMP in AM Status: Acute (2) Hyperkalemia: Status: Acute (3) Pulmonary embolism: Status: Acute (4) Atrial fibrillation with RVR: Patient with atrial fibrillation with rapid ventricular rate, likely secondary to pulmonary embolism, electrolyte abnormalities, and Covid. Echocardiogram is ordered. TSH within normal limits He was started on a Cardizem drip, will discontinue as patient has converted to normal sinus rhythm. Start beta jamin if heart rate and blood pressure are appropriate, metoprolol 12.5 mg twice daily Status: Acute (5) Acute kidney injury: Patient presented with KASSY secondary to above illness and associated dehydration. This has now resolved with Cr this AM at 1.1. Continue to hold ARB currently. Sweet still in place for accurate monitoring, will discontinue when patient is able to sit up and urinate without sweet in place. Continue close follow-up of renal dysfunction Secondary to Covid, dehydration, CK was checked and normal Status: Acute (6) Dehydration: Status: Acute (7) COVID-19: Continue to hold any further steroids secondary to DKA Continue to hold Paxlovid Note that he is immunized with Moderna Continue Rocephin, azithromycin empirically. Continue supplemental oxygen via nasal cannula, wean as tolerated, was decreased from 6 to 4 Ls this AM with >96% saturation. No significant evidence of viral pneumonia was noted on CTA Add incentive spirometry Add pulmonary toilet as needed Status: Acute (8) HTN (hypertension): Blood pressure improved. Starting metoprolol secondary to history of atrial fibrillation. Status: Acute Plan Start Senna-S for constipation Give Ativan 0.5 mg once for restlessness Full code Protonix for GI prophylaxis Lovenox for bilateral pulmonary emboli adequate for DVT prophylaxis May be appropriate for transfer to stepdown unit later today. Attestations Medical Necessity Statement*: Needs continued hospitalization secondary to DKA now resolved, pulmonary embolism, atrial fibrillation Coding Level of Care Code Acute Panel Monitor for [facility] Fwd Diagnoses DKA (diabetic ketoacidosis) E11.10 Hyperkalemia E87.5 Pulmonary embolism I26.99 Atrial fibrillation with RVR I48.91 Acute kidney injury N17.9 Dehydration E86.0 COVID-19 U07.1 HTN (hypertension) I10
[2021-12-31] MEDS: LORazepam 2 mg/mL INJ 1 mL 0.5 MG IVP (08:20)
[2021-12-31] MEDS: sennosides-docusate Tablet 1 TAB PO ×2 (08:21→17:14)
[2021-12-31] MEDS: insulin glargine 100 units/1 mL 10 UNIT SUBCUT ×2 (08:21→20:20)
[2021-12-31] MEDS: pantoprazole 40 mg SDV IVP (08:22)
[2021-12-31] MEDS: metoprolol tartrate 25 mg Tablet 12.5 MG PO ×2 (09:22→20:20)
[2021-12-31 09:24] LABS: Glucose Point of Care 255 mg/dL (70-110)
[2021-12-31] MEDS: insulin lispro 100 unit/1 mL SUBCUT ×4 (09:24→20:20)
--- NOTE | 2021-12-31 09:30 | PC.NURSE ---
Rounding with Dr. Pena this morning. Oxygen titrated from 6L to 4L NC saturation in the high 90's. Orders received to stop Insulin drip, cardizem drip, and potassium. Orders received to remove sweet catheter if patient feels comfortable with using urinal. Diet advanced to carb consist this AM. Lantus given after patient consumed breakfast. Blood glucose 225- 6 units of Humalog given. Patient resting comfortably at this time.
[2021-12-31] MEDS: azithromycin 500 MG in sodium chloride 0.9% 250 ML 250 MG IV (11:15)
[2021-12-31] MEDS: cefTRIAXone 1,000 MG in sodium chloride 0.9% (plus) 50 ML 100 MG IV (11:15)
[2021-12-31 11:35] LABS: Glucose Point of Care 262 mg/dL (70-110)
--- NOTE | 2021-12-31 14:14 | PC.NURSE ---
Transferred to CSU approximately 1400 via wheelchair. Patient resting in bed. Renee and Alize left with staff at nurses desk.
[2021-12-31 16:28] LABS: Glucose Point of Care 264 mg/dL (70-110)
--- NOTE | 2021-12-31 19:17 | PC.NURSE ---
Received report from TAMEKA Quinteros. Patient up to chair. Spouse at bedside. Patient denies pain at this time. Linen changed. Instructed patient on asking for help and blood sugar checks. Patient verbalized understanding. No distress observed. Will continue to monitor.
[2021-12-31 20:14] LABS: Glucose Point of Care 287 mg/dL (70-110)
[2022-01-01] VITALS (14 sets, daily range): BP systolic 104–120; BP diastolic 71–83; PULSE 84–114; RESP 13–18; TEMP 36.3; O2SAT 94–98
[2022-01-01 04:51] LABS: Basophils % 0.1 %; Eosinophils # 0.1 10^3/uL (0.0-0.8); Eosinophils % 0.7 %; Hematocrit 43.4 % (42.0-52.0); Hemoglobin 14.6 g/dL (11.7-16.6); Lymphocytes % 22.1 %; Mean Corpuscular HGB Conc 33.6 g/dL (30.0-36.0); Mean Corpuscular Hemoglobin 29.7 pg (28.0-34.0); Mean Corpuscular Volume 88.2 fl (80-94); Mean Platelet Volume 9.9 fL (7.4-10.4); Monocytes # 0.6 10^3/uL (0.2-0.9); Monocytes % 6.5 %; Neutrophils # 6.21 10^3/uL (1.8-7.7); Nucleated Red Blood Cells % 0 %; Platelet Count 139 10^3/cmm (130-400); Red Blood Count 4.92 10^6/uL (4.1-5.3); Red Cell Distribution Width 12.2 % (12.1-15.1); White Blood Count 8.9 10^3/uL (4.0-10.0)
[2022-01-01 05:15] LABS: Alanine Aminotransferase 10 U/L (0-41); Alkaline Phosphatase 48 IU/L (40-130); Anion Gap 13.2 (5-19); Aspartate Amino Transferase 11 U/L (0-40); Blood Urea Nitrogen 27 mg/dL (6-20); Calcium 7.5 mg/dL (8.5-10.5); Carbon Dioxide 21 mmol/L (22-29); Chloride 103 mmol/L (98-107); Glomerular Filtration Rate 140.4 mL/min (90-130); Glucose 231 mg/dL (65-115); Osmolality Calculated 288 mOsm/kg (285-295); Potassium 4.2 mmol/L (3.5-5.1); Sodium 133 mmol/L (136-145); Total Bilirubin 0.5 mg/dL (0.15-1.2)
[2022-01-01] MEDS: enoxaparin 100 mg/mL Syringe 90 MG SUBCUT (05:56)
[2022-01-01 06:19] LABS: Glucose Point of Care 247 mg/dL (70-110)
[2022-01-01] MEDS: lanolin oint 7 gm 1 APPLIC TOPICAL (06:34)
[2022-01-01] MEDS: insulin lispro 100 unit/1 mL SUBCUT ×4 (07:24→20:52)
[2022-01-01] MEDS: metoprolol tartrate 25 mg Tablet 12.5 MG PO ×2 (08:55→20:49)
[2022-01-01] MEDS: pantoprazole DR 40 mg Tablet PO (08:55)
[2022-01-01] MEDS: sennosides-docusate Tablet 1 TAB PO ×2 (08:55→17:47)
--- NOTE | 2022-01-01 10:50 | P.PN_ITS ---
Subjective Subjective: This morning patient was able to tolerate his diet, he noticed blood in his urine after removal of Wheeler catheter Still hyperglycemic I will check hemoglobin A1c level Patient does not use insulin at home His is sick with COVID-19 Plan to discharge him tomorrow if clinically stable Currently on room air No active complaints Increase normal saline rate 100 mL/h Vitals/I&O/Wt Last Vital Signs Temp 97.5 F L 12/31/21 16:29 Pulse 100 01/01/22 08:19 Resp 16 01/01/22 08:19 BP 120/83 01/01/22 07:48 Pulse Ox 97 01/01/22 08:19 12/31/21 01/01/22 01/01/22 22:59 06:59 14:59 Intake Total 1400 / 2637.997 900 / 3537.997 360 / 360 Output Total 1350 / 2150 1250 / 3400 Balance 50 / 487.997 -350 / 137.997 360 / 360 Weight last 48 hrs Weight 86.5 kg Weight 86.455 kg Physical Exam Narrative: Patient lying comfortably in his bed currently on room air saturating well S1, S2 Abdomen soft No audible stridor or wheezing Clinically looks euvolemic Nonfocal neuro exam Urinary Catheter Management: Wheeler: Cath Placed During This Visit: yes, but has since been removed by the nurse Reason for Continuing Indwelling Catheter: Decision to DC Catheter Urinary Catheter Date of Insertion: 12/30/21 Urinary Catheter Time of Insertion: 10:28 Date Urinary Catheter Removed: 12/31/21 Time Urinary Catheter Discontinued: 16:28 Data : 01/01/22 04:40 01/01/22 04:40 Micro: Microbiology 12/30/21 10:45 Blood Culture - Preliminary Blood NEGATIVE TO DATE 12/30/21 09:37 Blood Culture - Preliminary Blood NEGATIVE TO DATE A&P Assessment and plan (1) HTN (hypertension): Status: Acute (2) COVID-19: Status: Acute (3) Dehydration: Status: Acute (4) Acute kidney injury: Status: Acute (5) Atrial fibrillation with RVR: Status: Acute (6) Pulmonary embolism: Status: Acute (7) Hyperkalemia: Status: Acute (8) DKA (diabetic ketoacidosis): Status: Acute Plan DKA secondary to steroids this mostly improved with intermediate acting insulin Currently hyperglycemic Continue normal saline at 100 mL/h Check hemoglobin A1c level Hyperkalemia: Resolved PE: I will switch him to Eliquis at the time of discharge A. fib without RVR continue AV kishore blocking agent COVID-19: Off isolation, not requiring oxygen today Will assess for home O2 evaluation before discharge Avoid steroids No further plan for COVID-19 treatment at this point Conservative management Hypertension: Currently normotensive Consistent carb diet Full code DVT prophylaxis covered with therapeutic Lovenox Outpatient endocrinology referral Attestations Medical Necessity Statement*: Plan to discharge him tomorrow discharge tomor row Time Spent in Patient Care: 20min Coding Level of Care Code Acute Senior Managing Director for [facility] Fwd Diagnoses HTN (hypertension) I10 COVID-19 U07.1 Dehydration E86.0 Acute kidney injury N17.9 Atrial fibrillation with RVR I48.91 Pulmonary embolism I26.99 Hyperkalemia E87.5 DKA (diabetic ketoacidosis) E11.10
[2022-01-01 11:29] LABS: Glucose Point of Care 233 mg/dL (70-110)
[2022-01-01 11:35] LABS: Estmated Average Glucose 260; Hemoglobin A1C 10.7 % (4.0-6.0)
[2022-01-01] MEDS: sodium chloride 0.9% 1,000 ML 100 ML IV (12:28)
--- NOTE | 2022-01-01 13:54 | PC.NURSE ---
spoke with Dr. Simental with concerns of patient bleeding from penis after voiding this nurse called to room to find patient sitting on toilet in bath room with drips of bright red blood coming from end of penis instructions to start flomax 0.4mg PO daily and place Lovenox on hold
[2022-01-01] MEDS: tamsulosin 0.4 mg Capsule PO (15:24)
[2022-01-01 16:57] LABS: Glucose Point of Care 234 mg/dL (70-110)
--- NOTE | 2022-01-01 17:20 | PC.NURSE ---
notified provider of patient continued bleeding from Penis expressed concerns of patient instructions received to bladder scan post void provider will come speak with patient
--- NOTE | 2022-01-01 18:40 | PC.NURSE ---
This nurse agrees with all documentation and medication administration by Mary Jane Wisdom, Student nurse
[2022-01-01 19:22] LABS: Glucose Point of Care 96 mg/dL (70-110)
[2022-01-01 19:22] LABS: Glucose Point of Care 92 mg/dL (70-110)
[2022-01-01 19:22] LABS: Glucose Point of Care 106 mg/dL (70-110)
[2022-01-01 20:43] LABS: Glucose Point of Care 231 mg/dL (70-110)
[2022-01-01] MEDS: insulin glargine 100 units/1 mL 15 UNIT SUBCUT (20:51)
[2022-01-02] VITALS (12 sets, daily range): BP systolic 96–120; BP diastolic 61–93; PULSE 89–122; RESP 14–20; TEMP 36.6–36.9; O2SAT 94–100; BMI 25.8
--- NOTE | 2022-01-02 05:01 | PC.NURSE ---
Patient continues to have blood dripping from penis post voiding in urinal. Patient describes pain as a burning pain. Bleeding stops after a couple of minutes. Vitals are stable and patient is resting comfortably.
[2022-01-02 05:19] LABS: Basophils % 0.1 %; Eosinophils # 0.1 10^3/uL (0.0-0.8); Eosinophils % 0.9 %; Hematocrit 38.1 % (42.0-52.0); Hemoglobin 13.2 g/dL (11.7-16.6); Lymphocytes # 1.5 10^3/uL (0.8-4.8); Lymphocytes % 18.4 %; Mean Corpuscular HGB Conc 34.6 g/dL (30.0-36.0); Mean Corpuscular Hemoglobin 29.4 pg (28.0-34.0); Mean Corpuscular Volume 84.9 fl (80-94); Mean Platelet Volume 10.5 fL (7.4-10.4); Monocytes # 0.4 10^3/uL (0.2-0.9); Monocytes % 4.6 %; Neutrophils # 5.95 10^3/uL (1.8-7.7); Neutrophils % 75.6 %; Nucleated Red Blood Cells % 0 %; Platelet Count 142 10^3/cmm (130-400); Red Blood Count 4.49 10^6/uL (4.1-5.3); Red Cell Distribution Width 11.9 % (12.1-15.1); White Blood Count 7.9 10^3/uL (4.0-10.0)
[2022-01-02 05:35] LABS: INR 0.92 (0.8-1.2)
[2022-01-02 05:36] LABS: Fibrinogen 337 mg/dL (174-498); Partial Thromboplastin Time 29.1 SECONDS (23.9-36.7)
[2022-01-02 05:40] LABS: Anion Gap 11.9 (5-19); Blood Urea Nitrogen 26 mg/dL (6-20); Calcium 8.6 mg/dL (8.5-10.5); Carbon Dioxide 22 mmol/L (22-29); Chloride 102 mmol/L (98-107); Glomerular Filtration Rate 140.4 mL/min (90-130); Glucose 194 mg/dL (65-115); Osmolality Calculated 284 mOsm/kg (285-295); Potassium 3.9 mmol/L (3.5-5.1); Sodium 132 mmol/L (136-145)
[2022-01-02 06:19] LABS: Platelet Count 142 10^3/cmm (130-400)
[2022-01-02 06:26] LABS: Glucose Point of Care 184 mg/dL (70-110)
[2022-01-02] MEDS: insulin lispro 100 unit/1 mL SUBCUT ×4 (08:07→20:33)
[2022-01-02] MEDS: metoprolol tartrate 25 mg Tablet 12.5 MG PO (08:08)
[2022-01-02] MEDS: pantoprazole DR 40 mg Tablet PO (08:08)
[2022-01-02] MEDS: tamsulosin 0.4 mg Capsule PO (08:08)
[2022-01-02] MEDS: sennosides-docusate Tablet 1 TAB PO ×2 (08:08→17:52)
[2022-01-02 12:13] LABS: Glucose Point of Care 253 mg/dL (70-110)
--- NOTE | 2022-01-02 13:26 | P.PN_ITS ---
Subjective Subjective: Pt has endorsed improvement in hematuria to some extent BG better plan to monitor for next 24 hrs Sinus tachycardia Vitals/I&O/Wt Last Vital Signs Temp 98.4 F 01/02/22 04:00 Pulse 111 H 01/02/22 08:52 Resp 16 01/02/22 08:52 BP 115/93 01/02/22 08:52 Pulse Ox 94 01/02/22 08:52 01/01/22 01/02/22 01/02/22 21:59 06:59 14:59 Intake Total 354 / 354 Output Total 700 / 700 Balance -346 / -346 Weight last 48 hrs Weight 86.5 kg Weight 86.5 kg Physical Exam Narrative: Pt sitting in chair eating breakfast S1 s2 sinus tachycardia abd soft eomi perrla euvolemic Non labored breathing no active audible wheezing Urinary Catheter Management: Sweet: Cath Placed During This Visit: yes, but has since been removed by the nurse Reason for Continuing Indwelling Catheter: Decision to DC Catheter Urinary Catheter Date of Insertion: 12/30/21 Urinary Catheter Time of Insertion: 10:28 Date Urinary Catheter Removed: 12/31/21 Time Urinary Catheter Discontinued: 16:28 Data : 01/02/22 04:35 01/02/22 04:35 A&P Assessment and plan (1) HTN (hypertension): Status: Acute (2) COVID-19: Status: Acute (3) Acute kidney injury: Status: Acute (4) Atrial fibrillation with RVR: Status: Acute (5) Pulmonary embolism: Status: Acute (6) DKA (diabetic ketoacidosis): Status: Acute Plan DKA :- resolved BG better with high intensity sliding sclae Increased lantus hgA1c 10 will need lantus 15 U at dc w sliding sclae PE: Lovenox on hold due to hematuria Traumatic sweet removel: hematuria improving Sinus tachycardia likely due to PE Consist carb CM updated for Insulin cost analysis Dc darline covid : doing well on RA Attestations Medical Necessity Statement*: Dc darline Time Spent in Patient Care: 20mins Coding Level of Care Code Acute Process Excellence Manager for [facility] Fwd Diagnoses HTN (hypertension) I10 COVID-19 U07.1 Acute kidney injury N17.9 Atrial fibrillation with RVR I48.91 Pulmonary embolism I26.99 DKA (diabetic ketoacidosis) E11.10
[2022-01-02 16:33] LABS: Glucose Point of Care 183 mg/dL (70-110)
--- NOTE | 2022-01-02 16:48 | PC.NURSE ---
small blood clot noted and pinkish urine noted. Pt has 580 of urine output and he is concerned about the bleeding started again. informed doctor Dez through voalte and he responded to hold the Lovenox. Pt informed about the discussion.
[2022-01-02] MEDS: insulin glargine 100 units/1 mL 15 UNIT SUBCUT (20:33)
[2022-01-02] MEDS: metoprolol tartrate 25 mg Tablet PO (20:37)
[2022-01-02 20:39] LABS: Glucose Point of Care 197 mg/dL (70-110)
[2022-01-03 03:35] VITALS: BP 118/81; PULSE 91; RESP 15; TEMP 36.6; O2SAT 97
[2022-01-03 04:25] VITALS: PULSE 100
[2022-01-03 04:45] LABS: Hemoglobin 13.3 g/dL (11.7-16.6)
[2022-01-03 06:44] LABS: Glucose Point of Care 123 mg/dL (70-110)
[2022-01-03 08:00] VITALS: BP 117/76; PULSE 100; PULSE 98; RESP 18; RESP 20; TEMP 37.1; O2SAT 100; O2SAT 98
[2022-01-03] MEDS: sennosides-docusate Tablet 1 TAB PO (08:08)
[2022-01-03] MEDS: metoprolol tartrate 25 mg Tablet PO (08:09)
[2022-01-03] MEDS: tamsulosin 0.4 mg Capsule PO (08:09)
[2022-01-03] MEDS: pantoprazole DR 40 mg Tablet PO (08:09)
--- NOTE | 2022-01-03 09:09 | PM.DCS ---
Discharge Providers Date of Admission: 12/30/21 09:51 Date of Discharge: January 03, 2022 Attending Provider at Admission: David Pena MD Attending Provider at Discharge: Doyle Simental MD Primary Care Provider: Gladis Landis APN Diagnoses at Discharge Discharge Diagnosis (1) HTN (hypertension): Status: Acute (2) COVID-19: Status: Acute (3) Acute kidney injury: Status: Acute (4) Atrial fibrillation with RVR: Status: Acute (5) Pulmonary embolism: Status: Acute (6) DKA (diabetic ketoacidosis): Status: Acute Reason for Visit Reason for Visit: SOB Hospital Course Hospital Course Patient was admitted in the hospital for management of DKA. Steroid induced DKA which he took for his COVID-19 infection. He remained tachycardic, acute PE was diagnosed, he was started on Lovenox therapeutic regimen, no signs of right heart strain, A. fib RVR. Normal TSH echo unremarkable. For his A. fib RVR Cardizem drip was titrated off and he was started on metoprolol p.o. regimen. KASSY improved with IV fluid hydration. His hemoglobin A1c is 10, he will need Lantus 15 units long sliding scale. He wants to see operator assistant i cementing. Please note, he experienced hematuria after traumatic Wheeler catheter removal, hemoglobin remained stable, Lovenox was held. There is no swelling around his genitalia, hematuria has improved on 01/03, it has become light pink. I have instructed patient to start his Eliquis after 3 days once his hematuria improves in case of any worsening I have given him referral to see Dr. Lema. Tamsulosin was added during hospitalization. No signs of UTI. Medications started at the time of discharge Lantus 50 units Sliding scale insulin Metoprolol Eliquis Physical Exam Narrative: Pt sitting in chair eating breakfast S1 s2 sinus tachycardia abd soft eomi perrla euvolemic Non labored breathing no active audible wheezing Urinary Catheter Management: Wheeler: Cath Placed During This Visit: yes, but has since been removed by the nurse Reason for Continuing Indwelling Catheter: Decision to DC Catheter Urinary Catheter Date of Insertion: 12/30/21 Urinary Catheter Time of Insertion: 10:28 Date Urinary Catheter Removed: 12/31/21 Time Urinary Catheter Discontinued: 16:28 Discharge Data Studies Completed and Pending Completed Studies During Hospitalization Category Date Time Status CT angio chest PE protcl [id number] Stat Cat Scan 12/30/21 08:14 Completed CXRP [XR chest 1V portable [id number]] Stat Exams 12/30/21 07:56 Completed CV. echo complete* [id number] Routine Ultrasound 12/30/21 11:44 Completed Pending at discharge Category Date Time Status Blood Culture Stat Lab 12/30/21 10:45 Results Radiology Impressions Chest X-Ray 12/30/21 07:56 Impression: Atherosclerosis. Chest CTA 12/30/21 08:14 IMPRESSION: 1. Bilateral pulmonary emboli. Bilateral segmental/subsegmental lower lobe pulmonary emboli. 2. No RIGHT heart strain. 3. No adenopathy or pneumonia. Notified Phuc Jimenez DO at 12/30/2021 8:50 AM. Laboratory Results WBC 7.9 10^3/uL (4.0-10.0) 01/02/22 04:35 RBC 4.49 10^6/uL (4.1-5.3) 01/02/22 04:35 Hgb 13.3 g/dL (11.7-16.6) 01/03/22 04:14 Hct 38.0 % (42.0-52.0) L 01/03/22 04:14 MCV 84.9 fl (80-94) 01/02/22 04:35 MCH 29.4 pg (28.0-34.0) 01/02/22 04:35 MCHC 34.6 g/dL (30.0-36.0) 01/02/22 04:35 RDW 11.9 % (12.1-15.1) L 01/02/22 04:35 Plt Count 142 10^3/cmm (130-400) 01/02/22 04:35 Plt Count 142 10^3/cmm (130-400) 01/02/22 04:35 MPV 10.5 fL (7.4-10.4) H 01/02/22 04:35 Neut % (Auto) 75.6 % 01/02/22 04:35 Lymph % (Auto) 18.4 % 01/02/22 04:35 [place] % (Auto) 4.6 % 01/02/22 04:35 Eos % (Auto) 0.9 % 01/02/22 04:35 Baso % (Auto) 0.1 % 01/02/22 04:35 Neut # (Auto) 5.95 10^3/uL (1.8-7.7) 01/02/22 04:35 Lymph # (Auto) 1.5 10^3/uL (0.8-4.8) 01/02/22 04:35 [place] # (Auto) 0.4 10^3/uL (0.2-0.9) 01/02/22 04:35 Eos # (Auto) 0.1 10^3/uL (0.0-0.8) 01/02/22 04:35 Baso # (Auto) 0.0 10^3/uL (0.0-0.1) 01/02/22 04:35 Nucleated RBC % (auto) 0 % 01/02/22 04:35 Nucleated RBCs # 0.0 /100WBC 01/02/22 04:35 PT 12.60 SECONDS (12.1-14.9) 01/02/22 04:35 INR 0.92 (0.8-1.2) 01/02/22 04:35 APTT 29.1 SECONDS (23.9-36.7) 01/02/22 04:35 Fibrinogen 337 mg/dL (174-498) 01/02/22 04:35 Specimen Type Arterial 12/30/21 08:14 Sample Site Radial, left 12/30/21 08:14 ABG pH 7.04 (7.35-7.45) L* 12/30/21 08:14 ABG pCO2 7.7 mmHg (35-45) L* 12/30/21 08:14 ABG pO2 176.0 mmHg (80.0-100.0) H 12/30/21 08:14 ABG HCO3 2.1 mmol/L (22-26) L 12/30/21 08:14 ABG O2 Saturation 99.2 12/30/21 08:14 ABG Base Excess -26.0 mmol/L (-2.0-2.0) L 12/30/21 08:14 Erick Test Pos 12/30/21 08:14 A-a O2 Gradient 8.6 mmHg (5-10) 12/30/21 08:14 Hematocrit 58.6 % (42-52) H 12/30/21 08:14 Hgb O2 Saturation 97.5 % (95-100) 12/30/21 08:14 Carboxyhemoglobin 0.8 %THgb (0.4-20.1) 12/30/21 08:14 Methemoglobin 0.9 % (0.4-1.5) 12/30/21 08:14 Total Hemoglobin 19.1 g/dL (14-18) H 12/30/21 08:14 Sodium 128.0 mmol/L (131-143) L 12/30/21 08:14 Potassium 5.9 mmol/L (3.5-5.0) H 12/30/21 08:14 Glucose 603.0 mg/dL (70-115) H 12/30/21 08:14 Ionized Calcium 1.3 mmol/L (1.1-1.4) 12/30/21 08:14 O2 Delivery Device Nc 12/30/21 08:14 O2 Liters/Min 4.0 % 12/30/21 08:14 FiO2 36.0 % 12/30/21 08:14 Safety Investigator ID Ed 12/30/21 08:14 Sodium 132 mmol/L (136-145) L 01/02/22 04:35 Potassium 3.9 mmol/L (3.5-5.1) 01/02/22 04:35 Chloride 102 mmol/L (98-107) 01/02/22 04:35 Carbon Dioxide 22 mmol/L (22-29) 01/02/22 04:35 Anion Gap 11.9 (5-19) 01/02/22 04:35 BUN 26 mg/dL (6-20) H 01/02/22 04:35 Creatinine 0.6 mg/dL (0.7-1.2) L 01/02/22 04:35 GFR Calculation 140.4 mL/min (90-130) H 01/02/22 04:35 Glucose 194 mg/dL (65-115) H 01/02/22 04:35 POC Glucose 123 mg/dL (70-110) H 01/03/22 06:39 Estimat Average Glucose 260 01/01/22 04:40 Hemoglobin A1c 10.7 % (4.0-6.0) H 01/01/22 04:40 Calculated Osmolality 284 mOsm/kg (285-295) L 01/02/22 04:35 Calcium 8.6 mg/dL (8.5-10.5) 01/02/22 04:35 Phosphorus 2.0 mg/dL (2.5-4.5) L 01/01/22 04:40 Magnesium 2.0 mg/dL (1.7-2.3) 01/01/22 04:40 Total Bilirubin 0.5 mg/dL (0.15-1.2) 01/01/22 04:40 AST 11 U/L (0-40) 01/01/22 04:40 ALT 10 U/L (0-41) 01/01/22 04:40 Alkaline Phosphatase 48 IU/L (40-130) 01/01/22 04:40 Creatine Kinase 88 U/L (39-308) 12/30/21 08:38 Troponin T Baseline 22 ng/L (0-15) H 12/30/21 08:38 Troponin T 120 Minute 22.57 ng/L (0-15) H 12/30/21 10:45 Delta Troponin T 0.57 ABS# (0-10) 12/30/21 10:45 Troponin T Hi Sens 6Hr 55.65 ng/L (0-15) H 12/30/21 14:28 Troponin T Hi Sens 6Hr Delta 33.65 ng/L (0-12) H* 12/30/21 14:28 Total Protein 5.0 g/dL (6.6-8.7) L 01/01/22 04:40 Albumin 3.0 g/dL (3.5-5.2) L 01/01/22 04:40 Globulin 2.0 g/dL (1.3-4.6) 01/01/22 04:40 Procalcitonin 0.11 ng/mL (0-0.5) 12/30/21 08:38 TSH 0.29 uIU/mL (0.27-4.20) 12/30/21 08:38 Urine Color Straw (Yellow) 12/30/21 10:01 Urine Appearance Clear (CLEAR) 12/30/21 10:01 Urine pH 5 (5-7) 12/30/21 10:01 Ur Specific [place] 1.020 (1.005-1.030) 12/30/21 10:01 Urine Protein Trace (Negative) 12/30/21 10:01 Urine Glucose (UA) 4+ (Normal) H 12/30/21 10:01 Urine Ketones 3+ (Negative) H 12/30/21 10:01 Urine Blood 2+ (Negative) H 12/30/21 10:01 Urine Nitrate Negative (Negative) 12/30/21 10:01 Urine Bilirubin Neg (Negative) 12/30/21 10:01 Urine Urobilinogen Neg mg/dL (Negative) 12/30/21 10:01 Ur Leukocyte Esterase Negative (Negative) 12/30/21 10:01 Urine RBC Rare /hpf (0-2) 12/30/21 10:01 Urine WBC Rare /hpf (0-5) 12/30/21 10:01 Ur Squamous Epith Cells None /hpf (0-5) 12/30/21 10:01 Amorphous Sediment Not Reportable 12/30/21 10:01 Urine Bacteria None /hpf (NONE) 12/30/21 10:01 Fine Granular Casts Rare /lpf 12/30/21 10:01 Serum Ketones Positive (Negative) H 12/30/21 08:38 Vitals Last Vital Signs Temp 98.7 F 01/03/22 08:00 Pulse 100 01/03/22 08:00 Resp 20 H 01/03/22 08:00 BP 117/76 01/03/22 08:00 Pulse Ox 100 01/03/22 08:00 Discharge Plan Discharge Patient Disposition: Home Condition: Stable Prescriptions: New tamsulosin 0.4 mg Capsule 0.4 mg PO DAILY Qty: 8 0RF metoprolol tartrate 25 mg Tablet 25 mg PO BID@0900,2100 Qty: 60 3RF Lantus Solostar U-100 Insulin 100 unit/mL (3 mL) insulin pen 15 unit SUBCUT DAILY Qty: 15 2RF Eliquis DVT-PE Treat 30D Start 5 mg (74 tabs) tablets,dose pack 5 mg PO BID Qty: 74 0RF Novolog Flexpen U-100 Insulin 100 unit/mL (3 mL) insulin pen See Rx Instructions .ROUTE .COMPLEX Qty: 15 3RF Rx Instructions: Low-dose sliding scale (DME) Accu-Chek [place] Plus Meter Misc See Rx Instructions .Route Qty: 1 0RF Rx Instructions: As directed (DME) Accu-Chek Shelbi Plus test strp Strip See Rx Instructions .Route Qty: 100 2RF Rx Instructions: As directed (DME) Accu-Chek Softclix Lancets Misc See Rx Instructions .Route Qty: 200 2RF Rx Instructions: As directed Continued olmesartan [Benicar] 20 mg tablet 20 mg PO BID 0RF lorazepam [Ativan] 0.5 mg tablet 0.25 - 0.5 mg PO BID PRN (Reason: Anxiety) 0RF multivitamin Tablet 1 tab PO QAM 0RF metformin 500 mg tablet 1,000 mg PO BID 0RF cetirizine 10 mg tablet 10 mg PO DAILY 0RF glipizide 5 mg tablet 10 mg PO BID 0RF Ozempic 1 mg/dose (4 mg/3 mL) pen injector 1 mg SUBCUT Q7D 0RF Rx Instructions: on Discontinued aspirin 325 mg tablet 325 mg PO DAILY 0RF amoxicillin-pot clavulanate 875-125 mg tablet 1 tab PO BID 0RF Rx Instructions: FOR 10 DAYS (RX FILLED 12/23/21) Paxlovid See Rx Instructions .ROUTE .COMPLEX 0RF Rx Instructions: DIRECTED ON PACKAGE Discharge Orders: Discharge Order (Routine); Ordered 01/03/22 Ordered By: Doyle Simental Referrals: Christiano Lema MD [Physician] - 2 weeks Eloina Andres MD [Physician] - 01/11/22 8:45 am (You have an appointment to establish with Dr. Andres, operator assistant i cementing, on January 11 at 08:45. ) Jacquie Prince MD [Physician] - 01/06/22 9:00 am (You have an appointment to establish primary care with Elsa Borja APRN on at 09:00. ) Discharge Diet: Diabetic Discharge Activity: Increase activity as tolerated Patient Instructions: Opioid Safety Activity Restrictions/Additional Instructions: Blood Sugar Low Dose 60 ? 110 none 111 ? 150 2 units 151 ? 200 4 units 201 ? 250 6 units 251 ? 300 8 units 301 ? 350 10 units >350 12 units (call physician) Discharge Attestations Time Spent in Discharge Care*: less than 30 min Quality Metrics Clinical Quality Measures [ No reported AMI, CVA or VTE this stay] Coding Level of Care Code Acute Chg FW DC note Diagnoses HTN (hypertension) I10 COVID-19 U07.1 Acute kidney injury N17.9 Atrial fibrillation with RVR I48.91 Pulmonary embolism I26.99 DKA (diabetic ketoacidosis) E11.10
[2022-01-03 11:10] VITALS: BP 97/60; PULSE 103; RESP 18; TEMP 36.4; O2SAT 94
[2022-01-03 11:46] LABS: Glucose Point of Care 244 mg/dL (70-110)
[2022-01-03] MEDS: insulin lispro 100 unit/1 mL SUBCUT (12:10)
[2022-01-03 12:39] VITALS: O2SAT 95; O2SAT 97
--- NOTE | 2022-01-03 13:44 | PC.NURSE ---
Patient education provided regarding diabetes and other relevant d/c diagnosis. Patient understands teaching. Patient demonstrated giving himself insulin and was sufficient in his knowledge. Discharge is prolonged, waiting for patients transport. IV's have been removed. VS are stable.
[2022-01-03 15:00] VITALS: BP 97/60; PULSE 103; RESP 18; TEMP 36.4; O2SAT 94
== END 2022-01-03 15:01 | disposition home or self-care (01) | DRG 637 ==
LOC: ER 08:36 → ICU 10:09 → CSU 12-31 13:53
PROVIDERS: Nurse Practitioner Family; Admitting Provider Internal Medicine; Emergency Provider Family Medicine; PCP Nurse Practitioner Family; Visit Provider Internal Medicine
DX: E13.10 Other specified diabetes mellitus with ketoacidosis without coma (principal); I26.94 Multiple subsegmental thrombotic pulmonary emboli without acute cor pulmonale; U07.1 COVID-19; N17.9 Acute kidney failure, unspecified; E87.3 Alkalosis; T38.0X5A Adverse effect of glucocorticoids and synthetic analogues, initial encounter; I48.91 Unspecified atrial fibrillation; T83.091A Other mechanical complication of indwelling urethral catheter, initial encounter; Y73.1 Therapeutic (nonsurgical) and rehabilitative gastroenterology and urology devices associated with adverse incidents; R31.9 Hematuria, unspecified; E87.5 Hyperkalemia; E86.0 Dehydration; I10 Essential (primary) hypertension; K59.00 Constipation, unspecified; Z79.82 Long term (current) use of aspirin; Z79.84 Long term (current) use of oral hypoglycemic drugs
CPT/HCPCS: 36415; 36416; 51702; 71045; 71275; 80048; 80051; 80053; 81001; 82009; 82330; 82550; 82805; 82962; 83036; 83735; 84100; 84145; 84443; 84484; 85014; 85018; 85025; 85049; 85384; 85610; 85730; 87040; 93005; 93306; 96365; 96366; 96367; 96372; 96375; 99291; 99292; C9113; J0456; J0696; J1644; J1650; J1815 ×2; J2060; J2405; J3490; J7030; J7050; Q9967

== ENCOUNTER → 2022-01-06 11:17 | Outpatient (BNVA) | payer OTHER, SELFPAY | PROVIDERS: PCP Nurse Practitioner Family; Visit Provider Nurse Practitioner Family | DX: I10 Essential (primary) hypertension (principal); E86.0 Dehydration; E13.9 Other specified diabetes mellitus without complications; Z12.5 Encounter for screening for malignant neoplasm of prostate; F41.9 Anxiety disorder, unspecified; R00.2 Palpitations; N17.9 Acute kidney failure, unspecified; I26.99 Other pulmonary embolism without acute cor pulmonale; I48.91 Unspecified atrial fibrillation; Z76.89 Persons encountering health services in other specified circumstances | CPT/HCPCS: 80053; 80061; 84439; 84443; G0103 ==

== ENCOUNTER → 2022-01-17 08:47 | Outpatient (BNVA) | payer OTHER, SELFPAY | PROVIDERS: PCP Nurse Practitioner Family; Visit Provider Nurse Practitioner Family | DX: R31.0 Gross hematuria (principal) | CPT/HCPCS: 81003 ==

== ENCOUNTER → 2022-02-17 09:54 | Outpatient (BNVA) | payer OTHER, SELFPAY | PROVIDERS: PCP Nurse Practitioner Family; Visit Provider Urology | DX: R31.0 Gross hematuria (principal); Z12.5 Encounter for screening for malignant neoplasm of prostate | CPT/HCPCS: 81003 ==

== ENCOUNTER → 2022-04-05 11:28 | Outpatient (BNVA) | payer SELFPAY | PROVIDERS: PCP Nurse Practitioner Family; Visit Provider Dermatology | DX: Z01.89 Encounter for other specified special examinations (principal) ==

== ENCOUNTER → 2022-04-15 10:21 | Outpatient (BNVA) | payer OTHER, SELFPAY | PROVIDERS: PCP Nurse Practitioner Family; Visit Provider Nurse Practitioner Family | DX: J32.0 Chronic maxillary sinusitis (principal); I26.99 Other pulmonary embolism without acute cor pulmonale; R00.2 Palpitations; F41.9 Anxiety disorder, unspecified; I10 Essential (primary) hypertension; E13.9 Other specified diabetes mellitus without complications; E78.2 Mixed hyperlipidemia; E86.0 Dehydration; E87.5 Hyperkalemia; Z79.4 Long term (current) use of insulin | CPT/HCPCS: 82947; 84681; 86337; 86341 ==

== ENCOUNTER 2022-05-11 06:17 | Outpatient (CLI) | payer OTHER, SELFPAY ==
--- NOTE | 2022-05-11 06:30 | CT_ITS ---
WS: [id number] CTA OF THE CHEST WITH PULMONARY EMBOLISM PROTOCOL TECHNIQUE: High-resolution contrast enhanced CTA of the chest with coronal and sagittal reformatted i mages with pulmonary embolism protocol. MIP images are also reviewed. CLINICAL INFORMATION: Follow up PE COMPARISON: CTA December 30, 2021 DLP: 552.[address] scans at [facility] use at least one of these dose optimization techniques: automated e xposure control; mA and/or kV adjustment per patient size (includes targeted exams where dose is matc hed to clinical indication); or iterative reconstruction. FINDINGS: Proximal main pulmonary arteries are normal. Normal segmental and subsegmental pulmonary arteries. Pr eviously described filling defects in the lower lobe pulmonary arteries no longer visualized today. N o evidence of new or progressive pulmonary embolus. Both lungs are well aerated. No acute pulmonary i nfiltrates. No focal pneumonia or pleural fluid. Aortic calcification. No mediastinal or hilar lympha denopathy. No axillary lymphadenopathy. Adrenal glands are normal. Normal GE junction. CT/CT angio chest PE protcl [id number] IMPRESSION: 1. Proximal main pulmonary arteries are normal. Previously described pulmonary emboli no longer visualized. No evidence of new or recurrent pulmonary embolus . 2. Both lungs are well aerated. No acute pulmonary infiltrates. 3. No other significant changes.
[2022-05-11] MEDS: iohexol 350 mg/mL 100 mL Btl IV (07:39)
== END 2022-05-11 06:18 | disposition home or self-care (01) ==
PROVIDERS: PCP Nurse Practitioner Family; Visit Provider Nurse Practitioner Family
DX: I26.99 Other pulmonary embolism without acute cor pulmonale (principal)
CPT/HCPCS: 71275

== ENCOUNTER 2022-06-28 18:15 | Outpatient (CLI) | payer OTHER, SELFPAY ==
--- NOTE | 2022-06-28 18:29 | XR_ITS ---
WS: [id number] Chest 2 views, additional left lateral decubitus view, 06/28/2022 Clinical Data: lt. side rib pain Comparison: Portable chest, 12/30/2021. Findings: No nodules, masses or effusions are seen. The heart is normal. The pulmonary vascularity is not increased. No pneumonia or pneumothorax is seen. The aortic arch and descending thoracic aorta s how mild tortuosity. There is a dextroscoliosis. The left lateral decubitus shows no free fluid. XR/XR chest 3V [id number] Impression: Atherosclerosis.
== END 2022-06-28 18:16 | disposition home or self-care (01) ==
PROVIDERS: PCP Nurse Practitioner Family; Visit Provider Nurse Practitioner Family
DX: R07.81 Pleurodynia (principal); I70.90 Unspecified atherosclerosis
CPT/HCPCS: 71047

== ENCOUNTER → 2022-07-05 08:27 | Outpatient (BNVA) | payer SELFPAY | PROVIDERS: PCP Family Medicine; Visit Provider Dermatology | DX: Z01.89 Encounter for other specified special examinations (principal); E10.9 Type 1 diabetes mellitus without complications; E78.2 Mixed hyperlipidemia; A41.9 Sepsis, unspecified organism; Z12.5 Encounter for screening for malignant neoplasm of prostate; E87.5 Hyperkalemia; I10 Essential (primary) hypertension; I48.91 Unspecified atrial fibrillation ==

== ENCOUNTER → 2022-09-14 10:37 | Outpatient (BNVA) | payer OTHER, SELFPAY | PROVIDERS: PCP Nurse Practitioner Family; Visit Provider Nurse Practitioner Family | DX: R10.11 Right upper quadrant pain (principal) | CPT/HCPCS: 80053; 81000; 82150; 83690; 85025 ==

== ENCOUNTER → 2022-10-04 11:57 | Outpatient (BNVA) | payer SELFPAY | PROVIDERS: PCP Nurse Practitioner Family; Visit Provider Nurse Practitioner Family | DX: Z01.89 Encounter for other specified special examinations (principal) ==

== ENCOUNTER → 2023-01-03 09:23 | Outpatient (BNVA) | payer OTHER, SELFPAY | PROVIDERS: PCP Nurse Practitioner Family; Visit Provider Dermatology | DX: Z01.89 Encounter for other specified special examinations (principal) ==

== ENCOUNTER → 2023-04-04 12:00 | Outpatient (BNVA) | payer OTHER, SELFPAY | PROVIDERS: PCP Nurse Practitioner Family; Visit Provider Dermatology | DX: Z01.89 Encounter for other specified special examinations (principal) ==